=== PATIENT | female | born 1940 | race African-American/Black ===

== ENCOUNTER 2017-06-26 09:02 | Day surgery (SDC) | payer MEDICARE, MEDICAID ==
[~2017-06-26] VITALS: Ht 157.5 cm; Wt 108.9 kg
[~2017-06-26 09:02] MED LIST: BALANCED SALT IRRIG SOLN COMB1 500ML OP SCH
[2017-06-26] MEDS ORDERED: CYCLOPENTOLATE HCL 1% OPHTH DROPS 2ML LEFTEYE ONE (09:55)
[2017-06-26] MEDS ORDERED: PHENYLEPHRINE HCL 10% OPHTH DROPS 5ML LEFTEYE ONE (09:55)
[2017-06-26] MEDS ORDERED: TROPICAMIDE 1% OPHTH DROPS 15ML LEFTEYE ONE (10:00)
[2017-06-26] MEDS ORDERED: LACTATED RINGERS 1,000 ML IV SCH (10:10)
[2017-06-26] MEDS ORDERED: HYALURONATE SODIUM 14 MG/ML 0.85ML SYRINGE IO ONE (10:36)
[2017-06-26] MEDS ORDERED: PROBENECID PO (11:07)
[2017-06-26] MEDS ORDERED: IBUP-1509 PO (11:07)
[2017-06-26] MEDS ORDERED: CEPH500C2 PO (11:07)
[2017-06-26] MEDS ORDERED: OMEP20TA80 PO (11:07)
[2017-06-26] MEDS ORDERED: NIFE60TA64 PO (11:07)
[2017-06-26] MEDS ORDERED: LEVO50TA8 PO (11:07)
[2017-06-26] MEDS ORDERED: FURO40TA5 PO (11:07)
[2017-06-26] MEDS ORDERED: LOSA50TA20 PO (11:07)
[2017-06-26] MEDS ORDERED: MIDAZOLAM HCL 2 MG/2 ML VIAL ONE (12:11)
[2017-06-26] MEDS ORDERED: FENTANYL CITRATE/PF 50MCG/ML 2ML VIAL ONE (12:12)
[2017-06-26] MEDS ORDERED: PROPOFOL 200MG/20ML VIAL IV ONE (12:12)
[2017-06-26] MEDS ORDERED: NEO/POLYMYX B SULF/DEXAMETH OPHTH OINT 3.5GM ONE (12:23)
[2017-06-26] MEDS ORDERED: LIDOCAINE HCL 2%/EPINEPHRINE 1:100,000 20 ML VIAL INFIL ONE (12:23)
[2017-06-26] MEDS ORDERED: CIPROFLOXACIN 0.3% OPHTH SOLN 2.5ML ONE (12:23)
[2017-06-26] MEDS ORDERED: LIDOCAINE HCL/PF 2% 20 MG/ML 10ML VIAL ONE (12:23)
[2017-06-26] MEDS ORDERED: BALANCED SALT IRRIG SOLN 15ML ONE (12:23)
[2017-06-26] MEDS ORDERED: TETRACAINE 0.5% OPHTH DROPS 4ML ONE (12:23)
[2017-06-26] MEDS ORDERED: BUPIVACAINE HCL/PF 0.75% (7.5MG/ML) 10ML ONE (12:23)
[2017-06-26] MEDS ORDERED: PREDNISOLONE ACETATE 1% OPHTH DROPS 1ML ONE (12:23)
[2017-06-26] MEDS ORDERED: MORPHINE SULFATE 2 MG/ML CPJ (NOT FOR IM USE) IV PRN (12:30)
[2017-06-26] MEDS ORDERED: SODIUM CHLORIDE 0.9% 1,000 ML IV SCH (12:30)
[2017-06-26] MEDS ORDERED: ONDANSETRON HCL 4MG/2ML VIAL IV PRN (12:30)
== END 2017-06-26 13:45 | disposition home or self-care (01) ==
LOC: OR 09:02
PROVIDERS: ATTEND Ophthalmology
DX: H25.9 Unspecified age-related cataract (principal); E66.01 Morbid (severe) obesity due to excess calories; B19.20 Unspecified viral hepatitis C without hepatic coma; K21.9 Gastro-esophageal reflux disease without esophagitis; I10 Essential (primary) hypertension; D69.6 Thrombocytopenia, unspecified; E03.9 Hypothyroidism, unspecified; Z88.8 Allergy status to other drugs, medicaments and biological substances; Z68.41 Body mass index [BMI] 40.0-44.9, adult
CPT/HCPCS: 66984; J2250; J3010; J3490; J2704; V2632